=== PATIENT | female | born 1975 | race Caucasian/White ===

== ENCOUNTER 2021-08-08 06:44 | Emergency (ER) | payer BC ==
[2021-08-08] MEDS ORDERED: NA CHLORIDE 0.9% 1,000 ML ONE (07:42)
[2021-08-08] MEDS ORDERED: HYDROMORPHONE HCL 0.5 MG/0.5 ML INJ ONE (07:42)
[2021-08-08] MEDS ORDERED: ONDANSETRON 4 MG/2 ML VIAL ONE (07:42)
[2021-08-08 07:44] LABS: Absolute Lymphocytes (CBC) 0.9 K/uL (0.7-4.9); Basophils % 0.3 % (0-1.3); Hematocrit 40.6 % (36.0-45.0); Lymphocytes % 9.4 % (15.3-44.8); MPV 7.9 fL (7.6-11.3)
[2021-08-08 08:00] LABS: Albumin 3.7 g/dL (3.4-5.0); Bilirubin Direct 0.2 mg/dL (0-0.2); Bilirubin Total 0.6 mg/dL (0.2-1.0); Potassium 4.3 mmol/L (3.5-5.1); Protein, Total 7.8 g/dL (6.4-8.2)
--- NOTE | 2021-08-08 10:02 | RAD REPORT ---
EXAM DESCRIPTION: CTAbdomen Pelvis W Contrast - 08/08/2021 9:27 am CLINICAL HISTORY: Epigastric pain;Abd pain COMPARISON: No comparisons TECHNIQUE: CT of the abdomen and pelvis was performed. All CT scans are performed using dose optimization technique as appropriate and may include automated exposure control or mA/KV adjustment according to patient size. FINDINGS: Lower chest: No acute abnormality. Liver: No acute abnormality or suspicious lesions. Biliary: No biliary ductal dilatation. Stomach: No significant focal abnormality. Duodenum: No significant focal abnormality. Pancreas: No significant abnormality. Spleen: No significant abnormality. Adrenal: No suspicious lesions. Kidney/ureter: No hydronephrosis. No renal calculi. Retroperitoneum: No retroperitoneal adenopathy. Vascular: No aneurysm. Bowel: No significant focal abnormality. Normal appendix. Peritoneum: No ascites or free air. Bladder: Grossly unremarkable. Reproductive: No adnexal masses. Bones: No acute fracture. Other: n/a IMPRESSION: No acute intra-abdominal or pelvic finding.
--- NOTE | 2021-08-08 10:37 | ER ---
Nurse's Notes [facility] Name: Catherine Harding Age: 46 yrs Sex: Female : 1975 Arrival Date: 08/08/2021 Time: 06:49 Bed 18 Private MD: Diagnosis: Abdominal pain, unspecified Presentation: 08/08 06:53 Chief complaint: Patient states: Epigastric pain that started last night and through dc2 the night is radiating to her back. States is constant and is a sharp pain. Coronavirus screen: Vaccine status: Patient reports receiving the 2nd dose of the covid vaccine. Client denies travel out of the [place] in the last 14 days. At this time, the client does not indicate any symptoms associated with coronavirus-19. The client reports previous COVID testing was negative. Ebola Screen: Patient negative for fever greater than or equal to 101.5 degrees Fahrenheit, and additional compatible Ebola Virus Disease symptoms Patient denies exposure to infectious person. Patient denies travel to an Ebola-affected area in the 21 days before illness onset. Initial Sepsis Screen: Does the patient meet any 2 criteria? No. Patient's initial sepsis screen is negative. Does the patient have a suspected source of infection? No. Patient's initial sepsis screen is negative. Risk Assessment: Do you want to hurt yourself or someone else? Patient reports no desire to harm self or others. Onset of symptoms was August 07, 2021 at 21:00. 06:53 Method Of Arrival: Ambulatory dc2 06:53 Acuity: JASPREET 3 dc2 Triage Assessment: 06:58 General: Appears in no apparent distress. uncomfortable, obese, well groomed, Behavior dc2 is cooperative, anxious. Pain: Complains of pain in Pt points to epigastric area when asked about pain. Historical: - Allergies: 06:57 No Known Allergies; dc2 - Immunization history:: Adult Immunizations up to date, Client reports receiving the 2nd dose of the Covid vaccine, Flu vaccine is up to date. - Social history:: Smoking status: Patient denies any tobacco usage or history of. Patient/guardian denies using alcohol, street drugs, IV drugs. Screenin:33 Abuse screen: Denies threats or abuse. Denies injuries from another. Nutritional ch5 screening: No deficits noted. Tuberculosis screening: No symptoms or risk factors identified. Fall Risk None identified. Assessment: 07:33 Reassessment: No changes from previously documented assessment. General: Appears in no ch5 apparent distress. Behavior is calm, cooperative. Pain: Complains of pain in chest and epigastric area. Vital Signs: 06:53 BP 150 / 65; Pulse 66; Resp 19; Pulse Ox 100% ; Weight 88.45 kg; Height 5 ft. 5 in. dc2 (165.10 cm); Pain 8/10; 06:57 Temp 97.5(O); dc2 08:44 BP 124 / 61; Pulse 58; Resp 18; Pulse Ox 99% ; ch5 10:31 BP 137 / 90; Pulse 99; Resp 18; Pulse Ox 100% ; ch5 06:53 Body Mass Index 32.45 (88.45 kg, 165.10 cm) dc2 Vitals: 07:33 Cardiac Rhythm Assessment Regular Sinus rhythm. 5 ED Course: 06:49 Patient arrived in ED. bp1 06:56 Triage completed. dc2 07:06 Stephenie Wylie MD is Attending Physician. sp3 07:33 Eliceo Bravo, EUGENE is Primary Nurse. ch5 07:33 Patient has correct armband on for positive identification. Bed in low position. Call 5 light in reach. 07:33 No provider procedures requiring assistance completed. Inserted saline lock: 22 gauge ch5 in right forearm, using aseptic technique. 09:27 CT Abd/Pelvis - PO and IV Contrast In Process Unspecified. EDMS 10:37 Brady Noguera MD is Referral Physician. sp3 10:40 IV discontinued, intact. ch5 Administered Medications: 07:35 Drug: Dilaudid (HYDROmorphone) 0.5 mg Route: IVP; Site: right forearm; ch5 08:31 Follow up: Response: Pain is decreased ch5 07:35 Drug: Zofran (Ondansetron) 4 mg Route: IVP; Site: left forearm; ch5 08:31 Follow up: Response: No adverse reaction ch5 07:35 Drug: NS 0.9% 1000 ml Route: IV; Rate: 1 bolus; Site: right forearm; ch5 08:31 Follow up: IV Status: Completed infusion ch5 Outcome: 10:37 Discharge ordered by . sp3 10:40 Discharged to home ambulatory, with family. ch5 10:40 Condition: improved 10:40 Discharge instructions given to patient, Instructed on discharge instructions. 10:53 Patient left the ED. 5 Signatures: Dispatcher [employer] EDMS Angelique Ceja Setul, MD MD sp3 Eliceo Bravo RN RN ch5 Virginia Whittington RN RN dc2
--- NOTE | 2021-08-08 10:37 | EDPHYS ---
Physician Documentation [facility] Name: Catherine Harding Age: 46 yrs Sex: Female : 1975 Arrival Date: 08/08/2021 Time: 06:49 Bed 18 Private MD: ED Physician Stephenie Wylie HPI: 08/08 07:16 This 46 yrs old Female presents to ER via Ambulatory with complaints of sp3 abdominal pain. 07:16 46-year-old female with no significant past medical history presents with 1 day history sp3 of abdominal pain that started yesterday after eating pizza. Patient states that she has had a prior episode of this about 6 months ago for which she was seen at [facility] and received an ultrasound and CT scan which demonstrated "a small gallstone". Patient states that her pain started after eating and has been cramping abdominal pain mainly epigastric region. Patient denies on review of systems fever, URI symptoms, neck pain, chest pain, shortness of breath, upper back pain, lower abdominal pain, urinary symptoms, RADIUS GRINDER symptoms, syncope, numbness, tingling, or any other symptoms at this time. Remainder of review of systems are negative.. Historical: - Allergies: 06:57 No Known Allergies; dc2 - Immunization history:: Adult Immunizations up to date, Client reports receiving the 2nd dose of the Covid vaccine, Flu vaccine is up to date. - Social history:: Smoking status: Patient denies any tobacco usage or history of. Patient/guardian denies using alcohol, street drugs, IV drugs. ROS: 07:17 Constitutional: Negative for fever, chills, and weight loss, Eyes: Negative for injury, sp3 pain, redness, and discharge, ENT: Negative for injury, pain, and discharge, Neck: Negative for injury, pain, and swelling, Cardiovascular: Negative for chest pain, palpitations, and edema, Respiratory: Negative for shortness of breath, cough, wheezing, and pleuritic chest pain, Back: Negative for injury and pain, : Negative for injury, bleeding, discharge, and swelling, MS/Extremity: Negative for injury and deformity, Skin: Negative for injury, rash, and discoloration, Neuro: Negative for headache, weakness, numbness, tingling, and seizure. 07:17 All other systems are negative. Exam: 07:18 Constitutional: This is a well developed, well nourished patient who is awake, alert, sp3 and in no acute distress. Head/Face: Normocephalic, atraumatic. Neck: Trachea midline, no thyromegaly or masses palpated, and no cervical lymphadenopathy. Supple, full range of motion without nuchal rigidity, or vertebral point tenderness. No Meningismus. Chest/axilla: Normal chest wall appearance and motion. Nontender with no deformity. No lesions are appreciated. Cardiovascular: Regular rate and rhythm with a normal S1 and S2. No gallops, murmurs, or rubs. Normal PMI, no JVD. No pulse deficits. Respiratory: Lungs have equal breath sounds bilaterally, clear to auscultation and percussion. No rales, rhonchi or wheezes noted. No increased work of breathing, no retractions or nasal flaring. Back: No spinal tenderness. No costovertebral tenderness. Full range of motion. 07:18 Abdomen/GI: Exam negative for bruising, distension, guarding, rebound tenderness, Palpation: soft, moderate abdominal tenderness, Mild to moderate epigastric tenderness on palpation. Negative Romo sign.. 07:19 ECG was reviewed by the Attending Physician. EKG demonstrates normal sinus rhythm at 60 sp3 bpm with normal intervals, normal QRS, normal axis, and normal ST/T segments. Vital Signs: 06:53 BP 150 / 65; Pulse 66; Resp 19; Pulse Ox 100% ; Weight 88.45 kg; Height 5 ft. 5 in. dc2 (165.10 cm); Pain 8/10; 06:57 Temp 97.5(O); dc2 08:44 BP 124 / 61; Pulse 58; Resp 18; Pulse Ox 99% ; ch5 10:31 BP 137 / 90; Pulse 99; Resp 18; Pulse Ox 100% ; ch5 06:53 Body Mass Index 32.45 (88.45 kg, 165.10 cm) dc2 MDM: 07:06 Patient medically screened. sp3 07:47 Data reviewed: vital signs, nurses notes. Medical screen evaluation completed. EMTALA sp3 emergency medical condition absent. ED course: Differential diagnosis includes pancreatitis, gallbladder pathology, gastritis, functional abdominal pain. I am not highly suspicious for acute coronary syndrome, vascular pathology including AAA, bleeding ulcer, perforated viscus, any other critical emergency at this time. We will give Dilaudid and Zofran for pain control as well as IV fluids and keep patient n.p.o. until work-up is complete. Labs, CT scan have been ordered.. 10:35 ED course: Patient feels significantly better and has no pain at this time. CT scan is sp3 negative laboratory values are unremarkable. At this point we will discharge patient home with instructions for GI follow-up for outpatient endoscopy and educated her on biliary colic and signs and symptoms to return. Patient verbalized understanding and had no further questions at this time. Patient to be discharged home. No discharge medications indicated.. 08/08 07:15 Order name: Basic Metabolic Panel; Complete Time: 09:44 sp3 08/08 07:15 Order name: CBC with Diff sp3 08/08 07:15 Order name: Hepatic Function; Complete Time: 09:44 sp3 08/08 07:15 Order name: Lipase; Complete Time: 09:44 sp3 08/08 07:15 Order name: CT Abd/Pelvis - PO and IV Contrast; Complete Time: 10:29 sp3 08/08 07:15 Order name: IV Saline Lock; Complete Time: 07:35 sp3 08/08 07:15 Order name: Labs collected and sent; Complete Time: 07:35 sp3 08/08 07:15 Order name: NPO; Complete Time: 07:36 sp3 08/08 09:27 Order name: EKG Electrocardiogram; Complete Time: 10:30 EDMS Administered Medications: 07:35 Drug: Dilaudid (HYDROmorphone) 0.5 mg Route: IVP; Site: right forearm; ch5 08:31 Follow up: Response: Pain is decreased ch5 07:35 Drug: Zofran (Ondansetron) 4 mg Route: IVP; Site: left forearm; ch5 08:31 Follow up: Response: No adverse reaction ch5 07:35 Drug: NS 0.9% 1000 ml Route: IV; Rate: 1 bolus; Site: right forearm; ch5 08:31 Follow up: IV Status: Completed infusion ch5 Disposition Summary: 08/08/21 10:37 Discharge Ordered Location: Home sp3 Condition: Stable sp3 Diagnosis - Abdominal pain, unspecified sp3 Followup: sp3 - With: Private Physician - When: - Reason: Re-evaluation by your physician Followup: sp3 - With: Brady Noguera MD - When: As needed - Reason: Discharge Instructions: - Discharge Summary Sheet sp3 - Abdominal Pain, Adult sp3 Forms: - Medication Reconciliation Form sp3 - Thank You Letter sp3 - Antibiotic Education sp3 - Prescription Opioid Use sp3 Signatures: Dispatcher [employer] Stephenie Ruiz MD MD sp3 Eliceo Bravo RN RN ch5 Virginia Whittington RN RN dc2
[2021-08-08 10:59] VITALS: TEMP 97.5
[2021-08-08 11:02] VITALS: BP 137/90; O2SAT 100
[2021-08-08 13:14] LABS: Blood Morphology Comment NOT SEEN (NOT SEEN); Platelet Estimate ADEQ; White Blood Cell Scan OK (OK)
== END 2021-08-08 10:53 | disposition home or self-care (01) ==
LOC: ER 06:44
DX: R10.30 Lower abdominal pain, unspecified (principal)
CPT/HCPCS: 93005; 85025; 80048; 36415; 80076; 83690; 74177; 99283; Q9967; J1170; J7030; J2405